=== PATIENT | male | born 1945 | race Caucasian/White ===

== ENCOUNTER 2023-11-10 13:15 | Emergency (ER) | payer BC, MEDICARE ==
--- NOTE | 2023-11-10 13:37 | ERPHSYRPT ---
- History of Present Illness Time Seen by Provider: 11/10/23 13:37 Source: patient Exam Limitations: no limitations Physician History: This is a 78-year-old white male patient of Dr. West who presents by private vehicle secondary to significant pain in the posterior aspect of his right hip that has a chronic, constant baseline achiness with intermittent sharp shooting pain caudally and posteriorly down the hamstring into the knee on the right side with movement. Patient states he did not fall. He does recall twisting and bending a couple of days ago and having significant pain at the time. He was using lidocaine patches and warm compresses which were helping. Today, he twisted again and the pain became more severe in the same area and changed to more about constant pain and intermittent shooting sharp pain. Upon questioning, patient states he did not fall, he did not get hit in the back. He states that the pain is not in his back but in the right hip. That is where the pain starts. He denies chest pain. He denies shortness of breath. He denies abdominal pain. Timing/Duration: day(s) (2) Method of Injury: bending, twisted, other (No specific injury) Quality: sharp, aching, stabbing, other (Pain starts in the right posterior hip) Back Pain Radiation: buttocks (Right side posteriorly), upper legs (Right side posteriorly) Severity of Pain-Max: moderate Modifying Factors: Improves With: movement Associated Symptoms: No urinary incontinence, No loss of bowel control, No constipation, No nausea, No vomiting, No numbness in legs/feet, No sensory/motor loss, No tingling in legs/feet, No lower back pain, No muscle spasms Previous symptoms: no prior history, no recent treatment Allergies/Adverse Reactions: Tetracyclines Adverse Reaction (Verified 11/10/23 13:28) Travel Risk - International Travel Have you traveled outside of the country in past 3 weeks: No - Emerging Infectious Disease Are you exhibiting symptoms associated with any current EIDs: No - Review of Systems Constitutional: No Symptoms Eyes: No Symptoms Ears, Nose, & Throat: No Symptoms Respiratory: No Symptoms Cardiac: No Symptoms Abdominal/Gastrointestinal: No Symptoms Genitourinary Symptoms: No Symptoms Musculoskeletal: Other (Right posterior hip pain radiating caudally down the buttock and right hamstring) Neurological: No Symptoms Psychological: No Symptoms Endocrine: No Symptoms Hematologic/Lymphatic: No Symptoms Immunological/Allergic: No Symptoms All Other Systems: Reviewed and Negative - Past Medical History Pertinent Past Medical History: Yes - Past Surgical History Past Surgical History: Yes - Nursing Vital Signs Nursing Vital Signs: Initial Vital Signs Temperature 97.2 F 11/10/23 13:29 Pulse Rate 66 11/10/23 13:29 Respiratory Rate 18 11/10/23 13:29 Blood Pressure 144/89 11/10/23 13:29 O2 Sat by Pulse Oximetry 97 11/10/23 13:29 Pain Scale Pain Intensity 10 - Physical Exam General Appearance: no apparent distress, alert, anxiety Eye Exam: PERRL/EOMI, eyes nml inspection Ears, Nose, Throat Exam: normal ENT inspection, moist mucous membranes Neck Exam: normal inspection, non-tender, supple, full range of motion Respiratory Exam: No chest tenderness, No respiratory distress Gastrointestinal Exam: No tenderness Rectal Exam: not done Back Exam: normal inspection, normal range of motion, No CVA tenderness, No vert ebral tenderness Extremity Exam: normal inspection, normal range of motion, pelvis stable Neurologic Exam: alert, oriented x 3, cooperative, 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 Skin Exam: normal color, warm, dry Lymphatic Exam: No adenopathy SpO2 Interpretation: normal O2 Delivery: Room Air Ordered Tests: Medication Summary Discontinued Medications Generic Name Dose Route Start Last Admin Trade Name oPlly PRN Reason Stop Dose Admin Methylprednisolone Sodium 0 mg 11/10/23 14:01 11/10/23 14:27 Succinate 125 mg/ Sterile IM 11/10/23 14:02 125 mg Water 2 ml STAT ONE Administration Hydromorphone HCl 0.5 mg 11/10/23 14:01 11/10/23 14:27 Hydromorphone 1 Mg/1ml Inj IM 11/10/23 14:02 0.5 mg STAT ONE Administration Hydromorphone HCl Confirm 11/10/23 14:20 Hydromorphone 1 Mg/1ml Inj Administered 11/10/23 14:21 Dose 1 mg .ROUTE .STK-MED ONE Methylprednisolone Sodium Succinate Confirm 11/10/23 14:20 Methylprednis Sod Succ 125 Mg/2 Ml Vial Administered 11/10/23 14:21 Dose 125 mg .ROUTE .STK-MED ONE Ondansetron HCl 4 mg 11/10/23 14:01 11/10/23 14:22 Zofran 4 Mg/Udtablet Orally Disintegrating PO 11/10/23 14:02 4 mg STAT ONE Administration Ondansetron HCl Confirm 11/10/23 14:19 Zofran 4 Mg/Udtablet Orally Disintegrating Administered 11/10/23 14:20 Dose 4 mg .ROUTE .STK-MED ONE Orphenadrine Citrate 60 mg 11/10/23 14:01 11/10/23 14:26 Orphenadrine Citrate 60 Mg/2 Ml Vial IM 11/10/23 14:02 60 mg STAT ONE Administration Orphenadrine Citrate Confirm 11/10/23 14:20 Orphenadrine Citrate 60 Mg/2 Ml Vial Administered 11/10/23 14:21 Dose 60 mg .ROUTE .STK-MED ONE Sterile Water Confirm 11/10/23 14:19 Water For Injection,Sterile 10 Ml Vial Administered 11/10/23 14:20 Dose 10 ml IJ .STK-MED ONE - Progress Progress: improved, pain not gone completely Progress Note: 11/10/23 14:23 My medical decision making and the assignment of low complexity to this patient's medical issues based on review of the patient's past medical history, review the patient's medication list, review of patient drug allergy list, history present illness and physical findings on evaluation. The patient declines radiographic studies. He does not feel that he broke anything. He specifically states the pain is not in his back but in his right hip posteriorly. Differential diagnosis includes muscle skeletal pain, sciatica. We will provide the patient with a combination of medications to help with his pain. If this combination is helpful to him, we will remotely send prescriptions to his pharmacy. 11/10/23 15:11 Pain is much improved per his report. He wants to go home. Counseled pt/family regarding: diagnosis, need for follow-up, rad results Medical Desision Making - Independent Historian Additional History obtained from: Spouse - Diagnostic Testing Diagnostic test were ordered, analyzed, and reviewed by me: No - Risk of complications The pt has a mod risk of morbidity or mortality based on: Need for prescription drug management - Departure Departure Disposition: Home Clinical Impression: Sciatica Condition: Stable Critical Care Time: No Referrals: JORDAN WEST MD [Primary Care Provider] - Follow up/PCP as directed Additional Instructions: Take your medication as prescribed. Monitor your blood sugar closely by taking your steroids medication. Call your primary care provider 11/13/2023, to make a follow-up appointment to be seen in the next 3 to 5 days. Prescriptions: Prednisone 10 mg [Deltasone 10 mg] 10 mg PO TID #12 tablet Orphenadrine Citrate 100 mg [Norflex 100 MG Tablet] 100 mg PO BID #10 tab
[2023-11-10 13:49] VITALS: RESP 18; TEMP 97.2
[2023-11-10] MEDS ORDERED: Sterile H2O 10 ml IJ ONE (14:19)
[2023-11-10] MEDS ORDERED: ZOFRAN ODT 4 MG ONE (14:19)
[2023-11-10] MEDS ORDERED: Norflex 60 MG/2 ML ONE (14:20)
[2023-11-10] MEDS ORDERED: solu-MEDROL ONE (14:20)
[2023-11-10] MEDS ORDERED: Hydromorphone 1 mg/ml Injection ONE (14:20)
[2023-11-10] MEDS: ZOFRAN ODT 4 MG PO ONE (14:22)
[2023-11-10] MEDS: Norflex 60 MG/2 ML IM ONE (14:26)
[2023-11-10] MEDS: Hydromorphone 1 mg/ml Injection IM ONE (14:27)
[2023-11-10] MEDS: solu-MEDROL 125 MG, Sterile H2O 10 ml 2 ML IM ONE (14:27)
[2023-11-10 15:33] VITALS: BP 135/79; PULSE 77; O2SAT 96
== END 2023-11-10 15:33 | disposition home or self-care (01) ==
LOC: ED 13:15
DX: M54.31 Sciatica, right side (principal); Z79.52 Long term (current) use of systemic steroids
CPT/HCPCS: 96372; 99283; J1170; J2360; J2919; Q0162